=== PATIENT | male | born 2000 | race Caucasian/White ===

== ENCOUNTER 2020-10-23 16:07 | Emergency (ER) | payer OTHER, SELFPAY ==
--- NOTE | 2020-10-23 16:23 | ED.GENADULT ---
HPI - General Adult General Chief complaint: Upper Respiratory Infection Stated complaint: COVID Symptoms Time Seen by Provider: 10/23/20 16:23 Source: patient Mode of arrival: ambulatory Limitations: no limitations History of Present Illness HPI narrative: 20-year-old male patient presents to the [facility] with complaints of cold symptoms for the past 2 days. Patient states he has had a fever as high as 100. Congestion, runny nose, cough and coughing up sputum at times. Patient states today he noticed that he lost his sense of taste. Denies any chest pain or shortness of breath. Related Data Home Medications Medication Instructions Recorded Confirmed naltrexone mg 10/23/20 10/23/20 Allergies Allergy/AdvReac Type Severity Reaction Status Date / Time No Known Allergies Allergy Verified 10/23/20 16:39 Review of Systems Review of Systems: Narrative: CONSTITUTIONAL: Positive fever, denies chills, or sweats. EYES: Denies visual changes, redness, or discharge. ENT: Positive rhinorrhea, congestion, denies sore throat, or otalgia. Positive loss of sense of taste CARDIOVASCULAR: Denies chest pain, palpitations, or edema. RESPIRATORY: Positive cough, denies dyspnea. GASTROINTESTINAL: Denies abdominal pain, nausea, vomiting, or diarrhea. GENITOURINARY: Denies dysuria or hematuria. SKIN: Denies rash or itching. MUSCULOSKELETAL: Denies back pain, joint pain, or myalgia. NEUROLOGIC: Denies headache, numbness, or weakness. PSYCHIATRIC: Denies anxiety or depression. [facility] Past Medical History Medical History (Updated 10/23/20 @ 16:55 by CHAYITO Tse) Substance abuse On naloxone Comments At the time of my signature I agree with nursing past medical history, surgical, social, and family history. There is no relevant family history pertinent to the presenting complaint. Exam Narrative: Exam Narrative: GENERAL: Well-appearing, well-nourished, and in no acute distress. HEAD: Normocephalic, atraumatic. EYES: PERRLA and EOMI. ENT: Nares with erythema and edema noted bilaterally, no rhinorrhea or epistaxis. Mucous membranes moist. Posterior pharynx with slight erythema but no tonsil enlargement, no exudates or lesions present. Bilateral TMs are clear no erythema or foreign body to the canal NECK: Supple. No lymphadenopathy CHEST: Clear to auscultation. No respiratory distress. Patient able talk in clear complete sentences. No tripoding noted. HEART: Regular rate and rhythm. No murmur heard. Normal peripheral pulses. ABDOMEN: Soft, nontender, nondistended, normal active bowel sounds. EXTREMITIES: Normal range of motion. No edema. SKIN: Warm, dry, no rash. NEURO: No focal deficits. Alert and oriented x3. Course Vital Signs Vital signs: Vital Signs Temperature 37.3 C 10/23/20 16:29 Pulse Rate 98 10/23/20 16:29 Respiratory Rate 16 10/23/20 16:29 Blood Pressure 127/62 10/23/20 16:29 Pulse Oximetry 98 10/23/20 16:29 Temperature 37.3 C 10/23/20 16:29 Pulse Rate 98 10/23/20 16:29 Respiratory Rate 16 10/23/20 16:29 Blood Pressure 127/62 10/23/20 16:29 Pulse Oximetry 98 10/23/20 16:29 Vital signs reviewed Medical Decision Making Differential Diagnosis Differential Diagnosis: Differential diagnosis: Allergic rhinitis, chronic sinusitis, tonsillitis, acute sinusitis, infectious mononucleosis, seasonal influenza, pertussis, diphtheria, meningococcal disease, viral syndrome, viral bronchitis, RSV, COVID-19 Notified patient that we did do a rapid swab on him for Covid and that came back negative however given the fact that he has not had symptoms for 5 days I would not necessarily believe those results is a are most likely a false negative. Discussed with patient the fact that he lost his sense of taste makes this most likely a Covid diagnosis. Discussed with patient we will do a PCR test on him and send it off to the lab for further testing. Discussed with patient he needs to isolat
[2020-10-23 16:29] VITALS: BP 127/62; PULSE 98; RESP 16; TEMP 37.3; O2SAT 98
[2020-10-24 19:08] LABS: SARS-CoV-2 RNA PCR Negative
== END 2020-10-23 17:02 | disposition home or self-care (01) ==
PROVIDERS: Emergency Provider Nurse Practitioner Family
DX: Z20.822 Contact with and (suspected) exposure to COVID-19 (principal)
CPT/HCPCS: 87426; 99213; C9803; G0463; U0003; U0005

== ENCOUNTER 2025-03-13 12:08 | Emergency (ER) | payer OTHER, SELFPAY ==
[2025-03-13 12:21] VITALS: BP 146/66; PULSE 105; RESP 18; TEMP 36.7; O2SAT 100
[2025-03-13 12:25] LABS: EDSTREPNEGPOS1 Positive (Negative)
--- NOTE | 2025-03-13 12:28 | ED_ITS ---
HPI - URI/Sore Throat General Chief Complaint: Upper Respiratory Infection Stated Complaint: sore throat Time Seen by Provider: 03/13/25 12:20 Source: patient and RN notes reviewed Mode of arrival: ambulatory Limitations: no limitations History of Present Illness HPI Narrative: 24-year-old male presents Express Care complaining of sore throat and slight congestion for approximately 2-3 days. Patient denies any fevers, body aches, chills, any other upper respiratory symptoms, cough, nausea, vomiting, diarrhea, abdominal pain, chest pain, shortness of breath, or any other symptoms. Patient taking ibuprofen help with the pain. Related Data Home Medications ?Medication ?Instructions ?Recorded ?Confirmed ?Last Taken ?Type No Home Medications 03/13/25 03/13/25 Unknown History Allergies Allergy/AdvReac Type Severity Reaction Status Date / Time No Known Allergies Allergy Verified 03/13/25 12:29 Review of Systems Review of Systems: CONSTITUTIONAL: Denies fever, chills, or sweats. EYES: Denies visual changes, redness, or discharge. ENT: Denies rhinorrhea, difficulty clearing secretions, dysphagia, or otalgia. Positive for sore throat congestion. CARDIOVASCULAR: Denies chest pain, palpitations, or edema. RESPIRATORY: Denies cough or dyspnea. GASTROINTESTINAL: Denies abdominal pain, nausea, vomiting, or diarrhea. GENITOURINARY: Denies dysuria or hematuria. SKIN: Denies rash or itching. MUSCULOSKELETAL: Denies back pain, joint pain, or myalgia. NEUROLOGIC: Denies headache, numbness, or weakness. PSYCHIATRIC: Denies anxiety or depression. All other systems reviewed are negative, except as documented in HPI. PMFSH Past Medical History Medical History Substance abuse On naloxone Comments At the time of my signature, I reviewed and agree with the nursing past medical, surgical, social, and family history. There is no relevant family history pertinent to the patient complaint. Exam Narrative: GENERAL: This is a well-nourished, well-developed adult, in no apparent distress. They are non ill-appearing, nontoxic appearing. HEAD: normocephalic, atraumatic. EYES: Sclera clear/white. Conjunctiva normal. Vision is grossly intact. Extraocular movements intact EARS: External ears normal, auditory canals clear and without drainage, TMs normal without perforation. Hearing grossly intact. NOSE: External nose normal with no obvious nasal discharge, nasal turbinates without redness, no rhinorrhea. THROAT: Mucous membranes moist, posterior pharynx erythematous red and patchy. No exudate. Tonsils erythematous and red and patchy, 3+. No exudate. Uvula midline. NECK: Neck supple, non-tender without lymphadenopathy, masses or thyromegaly. CARDIOVASCULAR: Regular rate and rhythm without murmurs, gallops, or rubs. RESPIRATORY: Clear to auscultation. Breath sounds equal bilaterally. No wheezes, rales, or rhonchi. SKIN: warm, Dry, intact with no suspicious lesions or rash, good texture and turgor. NEURO: awake, alert, and oriented to person, place and time. There were no obvious focal neurologic abnormalities. EXTREMITIES: No joint tenderness, effusion, or edema noted. Course Course Emergency Course: Portions of this record may have been created with voice recognition software Level of Care: Express Care Visit Vital Signs Vital signs: Vital Signs Temperature 98.1 F 03/13/25 12:21 Pulse Rate 105 H 03/13/25 12:21 Respiratory Rate 18 03/13/25 12:21 Blood Pressure 146/66 H 03/13/25 12:21 Pulse Oximetry 100 03/13/25 12:21 Oxygen Delivery Room Air 03/13/25 12:21 Temperature 98.1 F 03/13/25 12:21 Pulse Rate 105 H 03/13/25 12:21 Respiratory Rate 18 03/13/25 12:21 Blood Pressure 146/66 H 03/13/25 12:21 Pulse Oximetry 100 03/13/25 12:21 Oxygen Delivery Room Air 03/13/25 12:21 Reviewed MDM - URI/Sore Throat MDM Narrative Medical decision making narrative: Rapid strep positive. Will treat with amoxicillin. Discussed physical exam findings. Advised supportive measures and signs/symptoms to go to the ER. Pt is appropriate for outpt treatment and f/u. Differential Diagnosis Differential diagnosis: Likely upper respiratory infection, viral infection and pharyngitis (Strep or viral) Lab Data Attestation: I reviewed the patient's lab results. Labs: Lab Results 03/13/25 Range/Units 12:23 POC Grp A Strep Screen Positive (Negative) Critical Care Time Critical Care Time Critical Care Time: No Discharge Plan Discharge Clinical Impression: Strep throat Patient Disposition: Home Condition: Stable Instructions: Antibiotic Form, Strep Throat (ED) Additional Instructions: You tested positive for strep throat. ?Please take the amoxicillin as prescribed until gone. ?You will be contagious for 24 hours after starting the medication. ?After 24 hours on antibiotics throw tooth brush away and start using a new one. Wash your sheets and cup/water bottle that is used daily. Do not share drinks. Take Tylenol or Ibuprofen for pain or fever, if able. ?Rest and stay hydrated. ?Follow up with your PCP in 3 days if symptoms are not improving. ?Go to the ER immediately if you develop worsening symptoms such as shortness of breath, difficulty swallowing. ? Patient Language: Slovenian Prescriptions: No Action naltrexone 50 mg Tablet Rx Instructions: unknown dose Follow-up/Referrals: PHYSICIAN,WOMEN'S BASKETBALL COACH [Primary Care Provider] - Time of Disposition: 12:28
== END 2025-03-13 12:32 | disposition home or self-care (01) ==
DX: J02.0 Streptococcal pharyngitis (principal)
CPT/HCPCS: 87880; 99212; G0463

== ENCOUNTER 2025-04-13 08:26 | Emergency (ER) | payer OTHER, SELFPAY ==
[2025-04-13 08:41] VITALS: BP 147/85; PULSE 84; RESP 18; TEMP 36.9; O2SAT 100
[2025-04-13 08:46] LABS: EDSTREPNEGPOS1 Positive (Negative)
--- NOTE | 2025-04-13 08:55 | ED.URI ---
HPI - URI/Sore Throat General Chief Complaint: Upper Respiratory Infection Stated Complaint: Strep? Time Seen by Provider: 04/13/25 08:55 Source: patient Mode of arrival: ambulatory Limitations: no limitations History of Present Illness HPI Narrative: 24 yo M presents with c/o sore throat, fatigue for 1 wk. hx of strep 03/13/25. Was treated with amoxicillin. Completed abx and symptoms had resolved. Reports strep 4 times in the last 6 months. All systems reviewed and negative except as noted above. Related Data Allergies Allergy/AdvReac Type Severity Reaction Status Date / Time No Known Allergies Allergy Verified 04/13/25 09:05 COUNTS INCLUDE 234 BEDS AT THE [facility] Past Medical History Medical History Substance abuse On naloxone Comments At time of signature, agree with nursing past medical, surgical, social and family history. There is no relevant family history pertinent to the presenting complaint. Exam Narrative: GENERAL: This is a well-nourished, well-developed patient, in no apparent distress. HEAD: normocephalic, atraumatic. EYES: PERRL. Sclera clear/white. Vision is grossly intact. EARS: External ears normal, auditory canals clear and without drainage, TMs normal without perforation. Hearing grossly intact. NOSE: External nose normal with no obvious nasal discharge, nares without redness, no rhinorrhea. THROAT: Mucous membranes moist, Erythematous, tonsils 2+ bilaterally without exudates NECK: Neck supple, non-tender without lymphadenopathy, masses or thyromegaly. CARDIOVASCULAR: Regular rate and rhythm without murmurs, gallops, or rubs. RESPIRATORY: Clear to auscultation. Breath sounds equal bilaterally. No wheezes, rales, or rhonchi. SKIN: warm, Dry, intact with no suspicious lesions or rash, good texture and turgor. NEURO: awake, alert, and oriented to person, place and time. There were no obvious focal neurologic abnormalities. EXTREMITIES: No joint tenderness, effusion, or edema noted. Course Course Level of Care: Express Care Visit Vital Signs Vital signs: Vital Signs Temperature 36.9 C 04/13/25 08:41 Pulse Rate 84 04/13/25 08:41 Respiratory Rate 18 04/13/25 08:41 Blood Pressure 147/85 H 04/13/25 08:41 Pulse Oximetry 100 04/13/25 08:41 Oxygen Delivery Room Air 04/13/25 08:41 Temperature 36.9 C 04/13/25 08:41 Pulse Rate 84 04/13/25 08:41 Respiratory Rate 18 04/13/25 08:41 Blood Pressure 147/85 H 04/13/25 08:41 Pulse Oximetry 100 04/13/25 08:41 Oxygen Delivery Room Air 04/13/25 08:41 reviewed MDM - URI/Sore Throat MDM Narrative Medical decision making narrative: positive rapid strep. Will treat with cefdinir. Patient is well-appearing, nontoxic. Differential Diagnosis Differential diagnosis: Likely upper respiratory infection, sinusitis, viral infection and pharyngitis Lab Data Labs: Lab Results 04/13/25 Range/Units 08:44 POC Grp A Strep Screen Positive (Negative) Discharge Plan Discharge Clinical Impression: Strep throat Patient Disposition: Home Condition: Stable Instructions: Antibiotic Form, Strep Throat (ED) Additional Instructions: your strep test was positive today. Take antibiotic as prescribed until gone. Change toothbrush after taking antibiotic for 24 hours. Take Tylenol or ibuprofen every 6-8 hours as needed for pain. Follow-up with your primary care physician if symptoms are not improving. Patient Language: Mauritian Prescriptions: New cefdinir 300 mg capsule 300 mg PO Q12H 10 Days Qty: 20 0RF No Action amoxicillin 500 mg tablet 500 mg PO Q12H 10 Days Qty: 20 0RF Follow-up/Referrals: PHYSICIAN,MATHEMATICS TEACHER [Primary Care Provider, Internal Medicine] Time of Disposition: 09:04
== END 2025-04-13 09:10 | disposition home or self-care (01) ==
PROVIDERS: Emergency Provider Nurse Practitioner Family
DX: J02.0 Streptococcal pharyngitis (principal)
CPT/HCPCS: 87880; 99213; G0463